=== PATIENT | female | born 1975 | race Caucasian/White ===

== ENCOUNTER 2016-11-15 21:46 | Emergency (ER) | payer OTHER ==
[~2016-11-15] VITALS: Ht 160 cm; Wt 95.3 kg
[~2016-11-15 21:46] MED LIST: BACITAB3 PO; CALC500T49 PO; CHLO0.124 MT; CLEO150C PO; ETOD200C31 PO; IBUP200T45 PO; PENI1TAB17 PO; PERCOCET PO; VALT1TAB PO; VITA100066 PO; ZANTTAB PO
[2016-11-15] MEDS ORDERED: MORPHINE 4 MG/ML 1ML SYRINGE IV ONE (22:30)
[2016-11-15] MEDS ORDERED: CLINDAMYCIN 600 MG in APPROPRIATE DILUENT 1 EA IV ONE (22:30)
[2016-11-15 22:48] LABS: BASO % 0.4 % (0.0-1.0); EOS # 0.1 K/mm3 (0.0-0.50); EOS % 1.5 % (0.0-3.0); LARGE UNSTAINED CELL # 0.1 K/mm3 (0.0-0.4); LARGE UNSTAINED CELL % 1.4 % (0.0-4.0); LYMPH # 3.3 K/mm3 (1.5-4.5); LYMPH % 38.6 % (24.0-44.0); MEAN CORPUSCULAR HEMOGLOBIN 30.5 pg (27.0-33.0); MEAN CORPUSCULAR HGB CONC 33.9 g/dl (32.0-36.5); MEAN CORPUSCULAR VOLUME 90.1 fl (80.0-96.0); MONO # 0.4 K/mm3 (0.0-0.8); MONO % 4.3 % (0.0-5.0); NEUTROPHILS # 4.5 K/mm3 (1.8-7.7); NEUTROPHILS % 53.8 % (36.0-66.0); PLATELET COUNT, AUTOMATED 378 k/mm3 (150-450); RED CELL DISTRIBUTION WIDTH 13.5 % (11.5-14.5); WHITE BLOOD COUNT 8.4 K/mm3 (4.0-10.0)
[2016-11-15 23:03] LABS: ERYTHROCYTE SEDIMENTATION RATE 22 mm/hr (0-20)
[2016-11-15 23:09] LABS: BLOOD UREA NITROGEN 11 MG/DL (7-18); CALCIUM LEVEL 8.3 MG/DL (8.5-10.1); CARBON DIOXIDE LEVEL 28 MEQ/L (21-32); CHLORIDE LEVEL 105 MEQ/L (98-107); CREATININE FOR GFR 0.85 MG/DL (0.55-1.02); GLUCOSE, FASTING 93 MG/DL (70-105); POTASSIUM SERUM 3.7 MEQ/L (3.5-5.1)
[2016-11-15] MEDS ORDERED: NORCOTAB PO (23:33)
[2016-11-15] MEDS ORDERED: CLEO300C2 PO (23:33)
[2016-11-15] MEDS ORDERED: NAPR500T PO (23:33)
[2016-11-15 23:39] VITALS: BP 140/95
[2016-11-16 01:27] LABS: ANION GAP 5 MEQ/L (8-16); SODIUM LEVEL 138 MEQ/L (136-145)
== END 2016-11-15 23:44 | disposition home or self-care (01) ==
LOC: M ED 22:35
DX: K04.7 Periapical abscess without sinus (principal); K02.9 Dental caries, unspecified

== ENCOUNTER 2017-01-13 15:30 | Emergency (ER) | payer OTHER ==
[~2017-01-13] VITALS: Ht 160 cm; Wt 100.8 kg
[~2017-01-13 15:30] MED LIST changes: +CLEO300C2 PO; +NAPR500T PO; +NORCOTAB PO
[2017-01-13] MEDS ORDERED: TYLE500T78 PO (16:01)
[2017-01-13] MEDS ORDERED: AUGM875T27 PO (16:39)
[2017-01-13] MEDS ORDERED: NORCOTAB PO (16:39)
[2017-01-13 16:45] VITALS: BP 173/100
[2017-01-13] MEDS ORDERED: NORCO, ANEXSIA 5/325MG TABLET (HYDROcodone/ACETAMINOPHEN) PO ONE (16:45)
== END 2017-01-13 16:53 | disposition home or self-care (01) ==
LOC: M ED 16:39
DX: K02.9 Dental caries, unspecified (principal)

== ENCOUNTER 2017-06-16 14:16 | Emergency (ER) | payer OTHER ==
[~2017-06-16] VITALS: Ht 160 cm; Wt 95.6 kg
[2017-06-16 14:16] VITALS: BP 178/103
[~2017-06-16 14:16] MED LIST changes: +AUGM875T28 PO; +BACITAB PO; -BACITAB3 PO; +TYLE500T78 PO
== END 2017-06-16 16:37 | disposition left against medical advice (07) ==
LOC: M ED 14:16
DX: Z53.21 Procedure and treatment not carried out due to patient leaving prior to being seen by health care provider (principal)

== ENCOUNTER 2018-12-14 19:39 | Emergency (ER) | payer OTHER ==
[~2018-12-14] VITALS: Ht 160 cm; Wt 120.5 kg
[~2018-12-14 19:39] MED LIST changes: +HYDR-3715 PO; +NAPR-837 PO; -NAPR500T PO; -NORCOTAB PO
[2018-12-14] MEDS ORDERED: TOPR50TA PO (19:49)
[2018-12-14] MEDS ORDERED: PROT1TAB2 PO (19:51)
[2018-12-14] MEDS ORDERED: VALT500T PO (19:51)
[2018-12-14] MEDS ORDERED: diuretic (19:51)
[2018-12-14] MEDS ORDERED: CLAR10CA3 PO (19:51)
[2018-12-14] MEDS ORDERED: ASPI81CH33 PO (19:51)
[2018-12-14] MEDS ORDERED: LIDOCAINE 2% W/EPIN INJ 20ML **PRES FREE INJ ONE (22:30)
[2018-12-14] MEDS ORDERED: MUPI2OI TOP (22:37)
[2018-12-14 22:38] VITALS: BP 132/81
== END 2018-12-14 22:46 | disposition home or self-care (01) ==
LOC: M ED 19:39
DX: L02.211 Cutaneous abscess of abdominal wall (principal); K21.9 Gastro-esophageal reflux disease without esophagitis; Z86.14 Personal history of Methicillin resistant Staphylococcus aureus infection; Z79.899 Other long term (current) drug therapy; Z79.82 Long term (current) use of aspirin

== ENCOUNTER 2024-07-23 08:22 | Emergency (ER) | payer BC, OTHER ==
[~2024-07-23] VITALS: Ht 160 cm; Wt 96.0 kg
[~2024-07-23 08:22] MED LIST changes: +ASPI81CH33 PO; +CLAR10CA3 PO; -IBUP200T45 PO; +IBUP200T46 PO; +MUPI2OI TOP; +PROT1TAB2 PO; +TOPR50TA PO; +VALT500T PO; +ZANT150T40 PO; -ZANTTAB PO; +diuretic
[2024-07-23] MEDS ORDERED: B-12100010 PO (08:34)
[2024-07-23] MEDS ORDERED: LOSA-534 PO (08:34)
[2024-07-23] MEDS ORDERED: OMEP40CA4 PO (08:34)
[2024-07-23] MEDS ORDERED: SEMA2PEN SQ (08:35)
[2024-07-23 10:09] LABS: HEPATITIS B SURFACE ANTIBODY NEGATIVE (POSITIVE)
[2024-07-23 10:22] LABS: HEPATITIS B SURFACE ANTIGEN NEGATIVE (NEGATIVE)
[2024-07-23 10:33] LABS: Trichomonas vaginalis (AMP) POSITIVE (NEGATIVE)
[2024-07-23] MEDS ORDERED: DOXY-441 PO (10:40)
[2024-07-23 10:43] LABS: HEPATITIS C VIRUS ABY INDEX < 0.02 INDEX (<0.8)
[2024-07-23 11:08] LABS: GC DNA AMPLIFICATION NEGATIVE (NEGATIVE)
[2024-07-23] MEDS: DOXYCYCLINE HYCLATE 100MG TABLET PO ONE (11:09)
[2024-07-23] MEDS: cefTRIAXone 500MG VIAL IM ONE (11:09)
[2024-07-23] MEDS: metroNIDAZOLE (FLAGYL) 500MG TABLET PO ONE (11:09)
[2024-07-23] MEDS: LIDOCAINE 1% SDV 5ML VIAL DILUENT ONE (11:09)
[2024-07-23 11:24] VITALS: BP 132/83; TEMP 99.1; O2SAT 96
[2024-07-23 11:49] LABS: HIV 1&2 SCREEN REACTIVE (NEGATIVE)
[2024-07-26 14:48] LABS: HIV AG/AB, 4TH GEN NON-REACTIVE (NON-REACTIVE)
== END 2024-07-23 11:39 | disposition home or self-care (01) ==
LOC: M ED 08:22
DX: A59.9 Trichomoniasis, unspecified (principal); E11.9 Type 2 diabetes mellitus without complications; I10 Essential (primary) hypertension; K21.9 Gastro-esophageal reflux disease without esophagitis; Z79.4 Long term (current) use of insulin; Z79.899 Other long term (current) drug therapy
CPT/HCPCS: 86702; 86706; 86780; 86803; 87210; 87340; 87389; 87661; 87810; 87850; 96372; 99283; J0696

== ENCOUNTER → 2024-08-15 | Outpatient (REF) ==
[~2024-08-15] MED LIST changes: +B-12100010 PO; +DOXY-441 PO; +LOSA-534 PO; +OMEP40CA4 PO; +SEMA2PEN SQ
[2024-08-17 13:17] LABS: HERPES ZOSTER, VARICELLA IgG 6.53 S/CO (>=1.00); RUBEOLA IgG ANTIBODY 45.1 AU/mL (>16.49)
== END ==
LOC: M LAB 14:09
PROVIDERS: ATTEND Nurse Practitioner Adult Health
DX: Z00.00 Encounter for general adult medical examination without abnormal findings (principal)

== ENCOUNTER 2024-09-15 17:16 | Emergency (ER) | payer BC, SELFPAY ==
[~2024-09-15] VITALS: Ht 160 cm; Wt 90.7 kg
[2024-09-15 17:56] LABS: BASO # 0.1 10^3/uL (0.0-0.2); BASO % 0.6 % (0.0-1.0); EOS # 0.1 10^3/uL (0.0-0.5); EOS % 1.2 % (0.0-3.0); HEMATOCRIT 38.8 % (36.0-47.0); HEMOGLOBIN 13.3 g/dl (12.0-15.5); LYMPH # 3.4 10^3/uL (1.5-5.0); LYMPH % 40.2 % (24.0-44.0); MEAN CORPUSCULAR HEMOGLOBIN 29.3 pg (27.0-33.0); MEAN CORPUSCULAR HGB CONC 34.3 g/dl (32.0-36.5); MEAN CORPUSCULAR VOLUME 85.5 fl (80.0-96.0); MONO # 0.5 10^3/uL (0.0-0.8); NEUTROPHILS # 4.4 10^3/uL (1.5-8.5); NEUTROPHILS % 51.9 % (36.0-66.0); PLATELET COUNT, AUTOMATED 334 10^3/uL (150-450); RED BLOOD COUNT 4.54 10^6/uL (4.00-5.40); WHITE BLOOD COUNT 8.4 10^3/uL (4.0-10.0)
[2024-09-15 18:16] LABS: CK-MB VALUE MASS 4.6 NG/ML (<3.6)
[2024-09-15 18:18] LABS: BLOOD UREA NITROGEN 19 MG/DL (9-23); CALCIUM LEVEL 9.5 MG/DL (8.5-10.1); CARBON DIOXIDE LEVEL 25 MMOL/L (20-31); CHLORIDE LEVEL 104 MMOL/L (98-107); CREATININE FOR GFR 0.98 MG/DL (0.55-1.30); GLOMERULAR FILTRATION RATE > 60.0 (>51); GLUCOSE, FASTING 108 MG/DL (60-100); POTASSIUM SERUM 3.9 MMOL/L (3.5-5.1); SODIUM LEVEL 142 MMOL/L (136-145)
[2024-09-15 18:19] LABS: CPK CREATINE PHOSPHOKINASE 428 U/L (34-145); MB/CK RELATIVE INDEX 1.07 (< OR =4)
[2024-09-15] MEDS ORDERED: ISOVUE-370 76% 100ML VIAL As Ordered ONE (18:26)
[2024-09-15] MEDS: diazePAM 10MG/2ML SYRINGE IV ONE (18:37)
[2024-09-15] MEDS: KETOROLAC 30 MG/ML 1ML VIAL IV ONE (18:37)
[2024-09-15 18:45] LABS: LIPASE 61 U/L (12-53)
[2024-09-15 18:47] LABS: ALBUMIN 3.8 G/DL (3.2-5.2); ALKALINE PHOSPHATASE 96 U/L (35-104); ALT/SGPT 44 U/L (7.0-40); AST/SGOT 34 U/L (<34); BILIRUBIN,DIRECT 0.1 MG/DL (<0.4); BILIRUBIN,TOTAL 0.4 MG/DL (0.3-1.2); TOTAL PROTEIN 7.4 G/DL (5.7-8.2)
[2024-09-15] MEDS ORDERED: METH-1165 PO (19:39)
[2024-09-15] MEDS ORDERED: IBUP-1022 PO (19:39)
[2024-09-15 19:45] VITALS: BP 102/65; TEMP 98; O2SAT 98
== END 2024-09-15 19:52 | disposition home or self-care (01) ==
LOC: M ED 17:16
DX: M54.2 Cervicalgia (principal); M54.9 Dorsalgia, unspecified; R07.9 Chest pain, unspecified; E11.9 Type 2 diabetes mellitus without complications; K21.9 Gastro-esophageal reflux disease without esophagitis; Z79.4 Long term (current) use of insulin; Z79.899 Other long term (current) drug therapy
CPT/HCPCS: 71045; 71275; 80048; 80076; 82550; 82553; 83690; 84484; 85025; 93005; 93041; 94760; 96374; 96375; 99285; J1885; J3360; Q9967

== ENCOUNTER → 2024-09-27 | Outpatient (REF) ==
[~2024-09-27] MED LIST changes: +IBUP-1022 PO; +METH-1165 PO
== END ==
LOC: M EMP 10:47
PROVIDERS: ATTEND Family Medicine
DX: Z11.52 Encounter for screening for COVID-19 (principal)

== ENCOUNTER → 2024-11-30 | Outpatient (CLI) | payer BC ==
[2024-11-30 12:19] LABS: HEMOGLOBIN A1c 5.7 % (4.0-6.0)
[2024-11-30 12:23] LABS: ALBUMIN 3.6 G/DL (3.2-5.2); BILIRUBIN,TOTAL 0.4 MG/DL (0.3-1.2); CHOLESTEROL RISK RATIO 4.73 (<5); CREATININE FOR GFR 0.88 MG/DL (0.55-1.30); GLOMERULAR FILTRATION RATE 79.5 (>51); HDL CHOLESTEROL 36.5 MG/DL (>40); LDL CHOLESTEROL 102.3 MG/DL (<100); NON-HDL-C 136.5 MG/DL; POTASSIUM SERUM 4.1 MMOL/L (3.5-5.1)
[2024-11-30 12:25] LABS: THYROID STIMULATING HORMONE 0.723 uIU/ML (0.55-4.78); TOTAL 25(OH) VITAMIN D 58.1 NG/ML (20.0-100.0)
== END ==
LOC: M LAB 11:21
PROVIDERS: ATTEND Student in an Organized Health Care Education/Training Program
DX: E11.40 Type 2 diabetes mellitus with diabetic neuropathy, unspecified (principal); Z68.39 Body mass index [BMI] 39.0-39.9, adult; E55.9 Vitamin D deficiency, unspecified

== ENCOUNTER → 2025-01-31 | Outpatient (REF) | payer BC | LOC: M LAB REF 12:28 | PROVIDERS: ATTEND Student in an Organized Health Care Education/Training Program | DX: R10.9 Unspecified abdominal pain (principal) ==

== ENCOUNTER → 2025-05-22 | Outpatient (REF) | payer BC ==
[~2025-05-22] MED LIST changes: -IBUP-1022 PO; +IBUP600T42 PO
[2025-05-22 16:56] LABS: BASO # 0.1 10^3/uL (0.0-0.2); BASO % 0.8 % (0.0-1.0); EOS # 0.2 10^3/uL (0.0-0.5); EOS % 3.1 % (0.0-3.0); LYMPH # 2.6 10^3/uL (1.5-5.0); LYMPH % 35.5 % (24.0-44.0); MONO # 0.4 10^3/uL (0.0-0.8); MONO % 5.7 % (2.0-8.0); NEUTROPHILS # 4.1 10^3/uL (1.5-8.5); NEUTROPHILS % 54.8 % (36.0-66.0); PLATELET COUNT, AUTOMATED 324 10^3/uL (150-450)
[2025-05-22 17:24] LABS: C REACTIVE PROTEIN QUANTITATIV < 0.50 MG/DL (<1.0)
[2025-05-22 17:25] LABS: CALCIUM LEVEL 9.2 MG/DL (8.5-10.1); CARBON DIOXIDE LEVEL 29 MMOL/L (20-31); CHLORIDE LEVEL 102 MMOL/L (98-107); CREATININE FOR GFR 0.94 MG/DL (0.55-1.30); GLOMERULAR FILTRATION RATE 73.0 (>51); POTASSIUM SERUM 5.1 MMOL/L (3.5-5.1); SODIUM LEVEL 140 MMOL/L (136-145)
== END ==
LOC: M LAB REF 16:24
PROVIDERS: ATTEND Student in an Organized Health Care Education/Training Program
DX: M79.7 Fibromyalgia (principal)